=== PATIENT | male | born 1990 | race African-American/Black ===

== ENCOUNTER 2016-11-20 18:33 | Emergency (ER) | payer OTHER ==
[~2016-11-20] VITALS: Ht 188 cm; Wt 104.9 kg
[~2016-11-20 18:33] MED LIST: ILOTYCIN1 GM BOTH EYES; PATANOL OP100 DROP/5 BOTH EYES
[2016-11-20 19:28] LABS: HEMATOCRIT 45.1 % (38.0-50.0); MCH 30.7 PG (29.0-34.0); MCHC 33.7 G/DL (30.0-36.0); MCV 91.1 FL (86-99); MEAN PLAT.VOLUME 10.7 uM^3 (9.0-12.4); PLATELET COUNT 176 K/uL (156-360); RBC DIS.WIDTH-CV 13.2 % (11.8-14.6); RBC DIS.WIDTH-SD 43.4 % (39-53); RED BLOOD COUNT 4.95 M/uL (4.00-5.50); WHITE BLOOD COUNT 6.7 K/uL (4.1-10.2)
[2016-11-20 19:40] LABS: CHLORIDE 101 mEq/L (99-109); POTASSIUM 3.8 mEq/L (3.7-5.4); SODIUM 136 mEq/L (136-147)
[2016-11-20 19:41] LABS: GLUCOSE 91 mg/dL (70-99)
[2016-11-20 19:43] LABS: ANION GAP 9 MEQ/L (2-14)
[2016-11-20 19:45] LABS: GFR ESTIMATE (CALCULATED) > 59 mL/min/
[2016-11-20 19:46] LABS: UREA NITROGEN (BUN) 8 mg/dL (9-23)
[2016-11-20] MEDS ORDERED: NAPROXEN500 MG PO (20:43)
[2016-11-20 21:09] VITALS: BP 147/92
== END 2016-11-20 21:09 | disposition home or self-care (01) ==
LOC: EME 18:33
DX: R07.89 Other chest pain (principal); B34.9 Viral infection, unspecified; R05 Cough; R51 Headache; F17.200 Nicotine dependence, unspecified, uncomplicated
CPT/HCPCS: 71020; 80048; 85027; 99281; 99284

== ENCOUNTER 2017-02-25 13:21 | Emergency (ER) | payer OTHER ==
[~2017-02-25] VITALS: Ht 188 cm; Wt 99.1 kg
[~2017-02-25 13:21] MED LIST changes: +NAPROXEN500 MG PO
[2017-02-25] MEDS ORDERED: ALLEGRA-D 241 TABLET PO (14:44)
[2017-02-25] MEDS ORDERED: FLONASE16 G1 BOTH NARES (14:44)
[2017-02-25] MEDS ORDERED: AUGMENTIN875 MG PO (14:44)
[2017-02-25 15:03] VITALS: BP 125/80
== END 2017-02-25 15:04 | disposition home or self-care (01) ==
LOC: EME 13:21
DX: J32.9 Chronic sinusitis, unspecified (principal)
CPT/HCPCS: 99281; 99284